=== PATIENT | female | born 1965 | race Caucasian/White ===

== ENCOUNTER → 2024-06-09 08:52 | Outpatient (REF) | payer BC, SELFPAY | LOC: WDC 08:52 | PROVIDERS: ATTENDING PHYSICIAN Surgery; FAMILY PHYSICIAN Family Medicine | DX: R92.2 Inconclusive mammogram (principal) | CPT/HCPCS: 76641 ==

== ENCOUNTER 2024-08-28 12:25 | Emergency (ER) | payer BC, SELFPAY ==
[2024-08-28] VITALS (7 sets, daily range): BP systolic 153–194; BP diastolic 92–119; BMI 31.7
--- NOTE | 2024-08-28 12:58 | ED.GENMED ---
History of Present Illness
General
Chief Complaint: Change in Mental Status
Source: patient and spouse
Time Seen by Provider: 08/28/24 12:36
History of Present Illness
History of Present Illness:
58-year-old female presents to the emergency room complaining of difficulty speaking. Patient states family members and friends have noted that she has been having some inappropriate words in her sentences and some mild confusion over the past 3 to
4 weeks. The patient admits she has noticed this, but does not think it is as big of a deal as her family. Patient denies any focal weakness or numbness. She has noted a tremor in her left arm. She has not had any falls. She denies headache,
nausea or vomiting. Patient was treated for breast cancer in 2020. She had a resection of the mass as well as radiation therapy. She did not require chemotherapy.
Phy Exam
Physical Exam
Physical Exam:
General: Awake, Alert, Oriented X3. No acute distress. Patient appears mildly anxious. During our conversation she had an occasional incorrect word in her sentences.
Vitals: Hypertensive
Head: Atraumatic
Eyes: Pupils equal, EOMI
Throat: Airway intact, no exudates
Neck: Trachea midline
Lungs: Clear and equal b/l
Heart: Regular rate, no murmurs
Abd: Soft, Nontender, No pulsatile mass
Neuro: Cranial nerves intact, muscle strength equal bilaterally, cerebellar exam normal
Skin: Warm, dry, no rash
Extremities: pulses equal b/l, no edema
Course
Orders/Labs/Results
Orders:
Orders
08/28/24 12:51
CT Head W/o Iv Contrast Urgent
Comment:
Reason For Exam: word finding difficulty/confusion, brst ca '21
08/28/24 13:20
Complete Blood Count/With Diff Urgent
Comprehensive Metabolic Panel Urgent
08/28/24 14:22
Urinalysis Reflex To Culture Urgent
Date Specimen was Collected: 08/28/24
Time Specimen was Collected: 14:21
Urine Microscopic Reflex Cult Urgent
Urine Culture Urgent
ISABEL Source: U
Specimen Description:
Date Specimen was Collected: 08/28/24
Time Specimen was Collected: 14:21
08/28/24 15:24
Dexamethasone Sod Phosphate [Decadron] 8 mg IV NOW STA
08/28/24 17:39
Dexamethasone Sod Phosphate [Decadron] 20 mg .ROUTE .STK-MED ONE
Abnormal Lab Results
08/28/24 08/28/24
13:20 14:22
MPV 11.0 H fL
(7.4-10.4)
Absolute Neuts (auto) 7.1 H 10^3/uL
(1.4-6.5)
Lymphocytes % 18.7 L %
(20.5-51.1)
Glucose 110 H mg/dl
(70-99)
Calcium 10.9 H mg/dl
(8.4-10.2)
Urine Ketones 1+ A
(Negative)
Leukocyte Esterase Rfl 2+ A
(Negative)
Urine WBC (Reflex) 11-15 A /HPF
(0-5)
Urine Bacteria (Reflex) Few A
(Negative)
08/28/24 13:20
08/28/24 13:20
Vital Signs
Initial and Last Documented VS:
Initial Vital Signs
Temp Pulse Resp BP Pulse Ox
98.4 F 108 18 194/119 97
08/28/24 12:30 08/28/24 12:30 08/28/24 12:30 08/28/24 12:30 08/28/24 12:30
Last Documented Vital Signs
Temp Pulse Resp BP Pulse Ox
98.4 F 114 21 153/95 97
08/28/24 12:30 08/28/24 15:15 08/28/24 15:15 08/28/24 15:00 08/28/24 15:00
MDM/Problems Addressed
Differential Diagnosis Includes:
cva, mass, sz
MDM/Problems Addressed:
Patient presents with no significant focal logic deficits but in conversation she does have occasional word use mistakes. At times there is a sense of a right lid droop. CT of the head shows a large area of vasogenic edema on the left.
Radiologist is a differential of a acute MCA infarct versus a mass. Presentation not consistent with an infarct a much more consistent with a mass given her history of breast cancer. Patient treated with Decadron. I discussed the situation with
the patient and her with the decision being made to transfer to [facility]. Accepted for transfer at [facility] by Dr. Roche
Chronic conditions affecting care: Cancer (Breast cancer)
*Critical Care Note
Total Time (30-74mins, 75-104mins- exclusive of procedures): 30 min
Patient Management
Social determinants of health affecting care: Strong social support
ED Attending Note
-
Portions of this chart may have been created with voice recognition software.� Occasional wrong word or��sound alike� substitutions may have occurred due to the inherent limitations of voice recognition software.
Discharge Plan
Departure
Patient Disposition: Acute Care Hospital
Date of Disposition: 08/28/24
Time of Disposition: 15:37
Admit to: Med/Surg
Condition: Fair
Discharge Problem:
Brain mass
Prescriptions:
No Action
hydrochlorothiazide 25 MG tablet
25 mg PO HS
anastrozole 1 MG tablet
1 mg PO HS
cholecalciferol (vitamin D3) 2,000 UNITS tablet
5,000 units PO DAILY
multivitamin with folic acid [Tab-A-Gilda] 1 TABLET tablet
1 tab PO DAILY
tramadol 100 MG capsule,ER biphase 24 hr 25-75
100 mg PO DAILY Qty: 20 0RF
Rx Instructions:
take with food
Referrals:
NONE,* [Family Provider] -
Hospital Transfer
Other hospital: [facility]
I certify that the patient requires transfer: Yes
Discussed case with accepting physician: Melchor
Reason for transfer: higher level of care and availability of service
Interventions
Interventions:
*Risk Screen - Suicide Last Done: 08/28/24 12:30
*General Assessment Last Done: 08/28/24 12:30
*Neglect/Abuse Screening Last Done: 08/28/24 12:30
*ED COVID-19 Vaccine History Last Done: 08/28/24 13:15
ED-Skin Assessment Last Done: 08/28/24 13:15
ED- Pulmonary Assessment Last Done: 08/28/24 13:15
ED- Neurological Assessment Last Done: 08/28/24 13:15
ED-EENT Assessment Last Done: 08/28/24 13:15
ED Swallowing Screen Last Done: 08/28/24 13:15
Discharge Date and Time
Print Language: SETSWANA
[2024-08-28 14:01] LABS: % Basophils 0.3 % (0-2); % Eosinophils 0.5 % (0-6); % Immature Granulocytes 0.4 % (0-0.5); % Lymphocytes 18.7 % (20.5-51.1); % Monocytes 6.1 % (1.7-9.3); Absolute Eosinophils 0.1 10^3/uL (0-0.7); Absolute Lymphocytes 1.8 10^3/uL (1.2-3.4); Absolute Monocytes 0.6 10^3/uL (0.1-0.6); Absolute Neutrophils 7.1 10^3/uL (1.4-6.5); Hematocrit 39.6 % (37.0-47.0); Hemoglobin 13.6 g/dL (12.0-16.0); Mean Corp Hgb Conc. 34.3 g/dL (33.0-37.0); Mean Corpuscular Hgb 28.8 pg (27.0-31.0); Mean Corpuscular Volume 83.7 fL (81.0-99.0); Nucleated Red Blood Cells % 0 %; Platelet Count 343 10^3/uL (130-400); Red Blood Cell Count 4.73 10^6/uL (4.20-5.40); Red Cell Dist. Width 13.3 % (11.5-14.5); White Blood Cell Count 9.6 10^3/uL (4.8-10.8)
[2024-08-28 14:25] LABS: ALT (SGPT) 35 U/L (0-35); AST (SGOT) 27 U/L (14-36); Alkaline Phosphatase 99 U/L (38-126); Blood Urea Nitrogen 15 mg/dl (7-17); Calcium 10.9 mg/dl (8.4-10.2); Carbon Dioxide 25 mmol/L (22-30); Chloride 99 mmol/L (98-107); Glucose 110 mg/dl (70-99); Potassium 3.9 mmol/L (3.5-5.1); Sodium 141 mmol/L (135-145); Total Bilirubin 0.7 mg/dl (0.2-1.3); eGFR > 60.00
[2024-08-28 14:43] LABS: Urine Albumin Negative (Neg - Trace); Urine Bilirubin Negative (Negative); Urine Character Clear (Clear); Urine Color Yellow; Urine Glucose Negative (Negative); Urine Ketone 1+ (Negative); Urine Leukocyte 2+ (Negative); Urine Nitrite Negative (Negative); Urine Occult Blood Negative (Negative); Urine Specific Gravity 1.005 (<1.030); Urine Urobilinogen Negative (Neg - 1+)
[2024-08-28 14:57] LABS: Urine Bacteria Few (Negative); Urine Squamous Cell 0-2 /LPF (Few)
[2024-08-28 14:58] LABS: Urine Red Blood Cell 0-2 /HPF (0-2)
[2024-08-28] MEDS: DECADRON 8 MG IV (17:41)
== END 2024-08-28 20:10 | disposition short-term general hospital (02) ==
LOC: EMR 12:25
PROVIDERS: EMERGENCY PHYSICIAN Emergency Medicine
DX: G93.9 Disorder of brain, unspecified (principal)
CPT/HCPCS: 99285; 96374; 70450; 80053; 81003; 81015; 85025; 87086

== ENCOUNTER → 2025-07-07 08:03 | Outpatient (REF) | payer BC, SELFPAY | LOC: RCS 08:03 | PROVIDERS: ATTENDING PHYSICIAN Nurse Practitioner; FAMILY PHYSICIAN Family Medicine | DX: C79.31 Secondary malignant neoplasm of brain (principal) | CPT/HCPCS: 93005 ==